=== PATIENT | female | born 1985 | race Caucasian/White ===

== ENCOUNTER 2017-06-11 11:29 | Emergency (ER) | payer OTHER ==
[~2017-06-11] VITALS: Ht 165.1 cm; Wt 99.8 kg
[~2017-06-11 11:29] MED LIST: ACEBUTCAFT PO; ALBU90OI; ALBU90OI INH; AMBIEN; AMLO5; ARIP10 PO; ATEN50; ATEN50 PO; BACL10 PO; BLOOD SUGAR MED; BUPR150T2; BUTONI; CARI350 PO; CETI10 PO; CIPR500 PO; CITA20; CLON.5 PO; CODBUTACEC PO; CRUTCH4 USE; CYCL10; CYCL10 PO; Cyclobenzaprine5 MG PO; DIAZ10 PO; DICL50ER; DIPATR PO; DIPH50 PO; DOXY100 PO; DULO60 PO; FAMO20 PO; GABA300 PO; HYDACE5 PO; HYDACE5325; HYDCHL12.5 PO; HYDGUAL120 PO; HYDROCHLOROTHIAZIDE; HYOS.125 SL; IBUP600 PO; IBUP800 PO; LABE100 PO; LOPE2C PO; MEDR150I; METCAR500 PO; Macrobid 100 M100 MG PO; NAPR375; NAPR500 PO; NAPR550 PO; NITR100CA PO; NORT10 PO; OMEP20ER PO; ONDA4 PO; ORTHOTRICYCLINE; OXYACE5T PO; PHENA200 PO; PRED10 PO; PROCODE120 PO; PROM12.5S PO; PROM25 PO; Percocet 5-3251 EACH PO; Prenatal Table1 EAC1 PO; Prilosec Otc20 MG; RANI150; RANI150 PO; ROSI4; RXCYCL10 PO; RXHYDACE PO; RXHYDGUAS PO; RXNAPNA550 PO; RXOXYACE PO; RXSULTRIDS PO; SERT100 PO; SERT50; SPACE CHAMBER1 EACH MC; SULTRIDS PO; TELMISARTAN; TIZA4; TOPI100 PO; TOPI25 PO; TOPI50 PO; TRAM50; TRAM50 PO; Tamiflu75 MG PO; UNKNOWN MED; YASMIN; [UNRECOGNIZED DRUG - REMARK]; [UNRECOGNIZED DRUG - REMARK]
[2017-06-11] MEDS ORDERED: ALBU90OI INH (11:52)
[2017-06-11] MEDS ORDERED: Flonase 0.05% N16 GM (11:52)
[2017-06-11] MEDS ORDERED: Sudogest30 MG PO (11:52)
[2017-06-11] MEDS ORDERED: Cheratussin AC118 ML PO (11:52)
== END 2017-06-11 11:56 | disposition home or self-care (01) ==
LOC: ER 11:29
DX: J32.9 Chronic sinusitis, unspecified (principal); F17.200 Nicotine dependence, unspecified, uncomplicated; Z91.048 Other nonmedicinal substance allergy status; Z88.1 Allergy status to other antibiotic agents; Z88.5 Allergy status to narcotic agent; Z79.899 Other long term (current) drug therapy
CPT/HCPCS: 99283